=== PATIENT | female | born 1960 | race Caucasian/White ===

== ENCOUNTER 2018-01-27 20:03 | Observation (INO) | payer OTHER ==
[~2018-01-27] VITALS: Ht 162.6 cm; Wt 110.1 kg
[~2018-01-27 20:03] MED LIST: FERR325T51 PO; VITAMIN B12 PO; VITAMIN B6 PO; VITAMIN D PO
[2018-01-27 20:39] LABS: BASO % 0.4 %; BASO ABS # 0.02 K/uL (0-0.2); EOS % 2.1 %; HEMATOCRIT 37.7 % (37-47); HEMOGLOBIN 12.2 g/dL (12.0-16.0); LYMPH % 27.6 %; MEAN CELL VOLUME 84.9 fL (80-100); MEAN CORPUSCULAR HEMOGLOBIN 27.5 pg (25-34); MEAN CORPUSCULAR HGB CONC 32.4 g/dl (32-36); MEAN PLATELET VOLUME 10.1 fL (7.4-10.4); MONO % 10.4 %; MONO ABS # 0.49 K/uL (0.11-0.59); NEUT % 59.5 %; PLATELET COUNT 238 K/uL (130-400); RED CELL DISTRIBUTION WIDTH CV 14.2 % (11.5-14.5); RED CELL DISTRIBUTION WIDTH SD 44.2 fL (36.4-46.3); WHITE BLOOD COUNT 4.71 K/uL (4.8-10.8)
--- NOTE | 2018-01-27 20:39 | DIAGNOSTIC IMAGING REPORT ---
CHEST ONE VIEW PORTABLE HISTORY: Atypical CHEST PAIN COMPARISON: Chest 11/07/2015. FINDINGS: The lungs are clear. Cardiac silhouette is normal in size. No pleural effusions. No pneumothorax. Stable eventration of the right hemidiaphragm. There are low lung volumes, unchanged. IMPRESSION: No significant change compared to the prior study. No acute process. Electronically signed by: Pk Means M.D. 01/27/2018 8:38 PM Dictated Date/Time: 01/27/2018 8:37 PM
[2018-01-27 20:48] LABS: INR 0.9 (0.9-1.1); PTT PATIENT 25.9 SECONDS (21.0-31.0)
[2018-01-27 20:55] LABS: ALBUMIN 3.7 gm/dl (3.4-5.0); ALT/SGPT 24 U/L (12-78); AST/SGOT 26 U/L (15-37); BLOOD UREA NITROGEN 19 mg/dl (7-18); CALCIUM 8.7 mg/dl (8.5-10.1); CARBON DIOXIDE 25 mmol/L (21-32); CREATININE 1.02 mg/dl (0.60-1.20); GLUCOSE 92 mg/dl (70-99); LIPASE 201 U/L (73-393); SODIUM 139 mmol/L (136-145)
[2018-01-27 21:00] LABS: ALKALINE PHOSPHATASE 138 U/L (45-117); CKMB 1.8 ng/ml (0.5-3.6); TOTAL PROTEIN 7.6 gm/dl (6.4-8.2)
[2018-01-27] MEDS ORDERED: ASPIRIN 81 MG CHEW PO STA (21:06)
[2018-01-27] MEDS ORDERED: ACET-1256 PO (21:23)
[2018-01-27] MEDS ORDERED: ACETAMINOPHEN 325 MG TAB PO PRN (22:00)
[2018-01-27] MEDS ORDERED: NITROGLYCERIN 0.4 MG SL PER TAB CHARGE SL PRN (22:00)
[2018-01-27] MEDS ORDERED: METOPROLOL TARTRATE 1 MG/ML VIAL IV. PRN (22:00)
--- NOTE | 2018-01-27 22:03 | History and Physical ---
History & Physical Date & Time of Service: Jan 27, 2018 at 21:53 Chief Complaint: Possible Heart Attack- Dr Referred Primary Care Physician: No Doctor, Assigned History of Present Illness Source: patient Ms. Watts is a pleasant 57yo female with no significant past medical history. She reports feeling "odd" this afternoon with some mild sub-sternal chest pressure at approximately 12:00 this afternoon. The pain was nonradiating, nonexertional, nonpleuritic. She checked her blood pressure at the pharmacy and it was 171/82. She reports having normal blood pressures at baseline. She returned to work and experienced another episode of chest discomfort associated with a cold sweat. She then called her PCP and was seen at 18:30. An EKG was performed which was concerning for an old infarct therefore she was sent to the ER. She is presently without pain and feeling well. She does endorse some episodic chest discomfort and becoming "winded" with heavy exercise. She is a nonsmoker, no history of HTN, HLP or DM. She has a family history of CAD. ER Course: ASA 324mg Past Medical/Surgical History Medical Problems: (1) Chest pain Surgical Problems: (1) H/O gastric bypass Family History Cancer Diabetes mellitus FH: myocardial infarction Heart disease Hypertension Social History Smoking Status: Never Smoker Smokeless Tobacco Use: No Alcohol Use: none Drug Use: none Marital Status: single Occupational Status: employed Allergies Coded Allergies: Penicillins (Verified Allergy, Unknown, pt unsure of rxn occured as a child, 02/14/16) Hydrocodone (Verified Adverse Reaction, Unknown, pt states she "zoned", 07/22) Home Medications Scheduled PRN Acetaminophen (Tylenol), 500 MG PO UD PRN for Pain or Fever Review of Systems Constitutional: No fever, No chills, No sweats, No weight loss, No weakness Eyes: No worsening of vision, No redness, No discharge, No diplopia ENT: No hearing loss, No unusual epistaxis, No sore throat, No trouble swallowing Respiratory: + dyspnea on exertion, No cough, No sputum, No wheezing, No shortness of breath Cardiovascular: + chest pain, + palpitations, No orthopnea, No edema Abdomen: No pain, No nausea, No vomiting, No diarrhea, No constipation Musculoskeletal: No swelling Genitourinary - Female: No dysuria, No urinary frequency, No urinary urgency, No hematuria Neurologic: No weakness, No numbness/tingling Endocrine: No fatigue Hematologic / Lymphatic: No abnormal bleeding/bruising Integumentary: No rash Physical Exam Vital Signs Date Time Temp Pulse Resp B/P (MAP) Pulse Ox O2 Delivery O2 Flow Rate FiO2 01/27/18 21:34 79 18 159/72 98 Room Air 01/27/18 20:30 66 01/27/18 20:20 96 Room Air 01/27/18 20:20 98 Room Air 01/27/18 20:19 98 Room Air 01/27/18 20:09 36.6 69 18 204/88 99 Room Air General Appearance: WD/WN, no apparent distress Head: normocephalic, atraumatic Eyes: normal inspection, PERRL, EOMI, sclerae normal ENT: normal ENT inspection, hearing grossly normal, pharynx normal Neck: supple, no adenopathy, thyroid normal, no JVD, trachea midline Respiratory/Chest: chest non-tender, lungs clear, normal breath sounds, no respiratory distress, no accessory muscle use Cardiovascular: regular rate, rhythm, no edema, no gallop, no JVD, no murmur, normal peripheral pulses Abdomen/GI: normal bowel sounds, non tender, soft, no organomegaly Back: normal inspection, no CVA tenderness Extremities/Musculoskelatal: normal inspection Skin: normal color, warm/dry, no rash Diagnostics Laboratory Results Results Past 24 Hours Test 01/27/18 20:22 Range/Units White Blood Count 4.71 4.8-10.8 K/uL Red Blood Count 4.44 4.2-5.4 M/uL Hemoglobin 12.2 12.0-16.0 g/dL Hematocrit 37.7 37-47 % Mean Corpuscular Volume 84.9 80-100 fL Mean Corpuscular Hemoglobin 27.5 25-34 pg Mean Corpuscular Hemoglobin Concent 32.4 32-36 g/dl Platelet Count 238 130-400 K/uL Mean Platelet Volume 10.1 7.4-10.4 fL Neutrophils (%) (Auto) 59.5 % Lymphocytes (%) (Auto) 27.6 % Monocytes (%) (Auto) 10.4 % Eosinophils (%) (Auto) 2.1 % Basophils (%) (Auto) 0.4 % Neutrophils # (Auto) 2.80 1.4-6.5 K/uL Lymphocytes # (Auto) 1.30 1.2-3.4 K/uL Monocytes # (Auto) 0.49 0.11-0.59 K/uL Eosinophils # (Auto) 0.10 0-0.5 K/uL Basophils # (Auto) 0.02 0-0.2 K/uL RDW Standard Deviation 44.2 36.4-46.3 fL RDW Coefficient of Variation 14.2 11.5-14.5 % Immature Granulocyte % (Auto) 0.0 % Immature Granulocyte # (Auto) 0.00 0.00-0.02 K/uL Prothrombin Time 9.7 9.0-12.0 SECONDS Prothromb Time International Ratio 0.9 0.9-1.1 Activated Partial Thromboplast Time 25.9 21.0-31.0 SECONDS Partial Thromboplastin Ratio 1.0 Sodium Level 139 136-145 mmol/L Potassium Level 4.0 3.5-5.1 mmol/L Chloride Level 107 98-107 mmol/L Carbon Dioxide Level 25 21-32 mmol/L Anion Gap 7.0 3-11 mmol/L Blood Urea Nitrogen 19 7-18 mg/dl Creatinine 1.02 0.60-1.20 mg/dl Est Creatinine Clear Calc Drug Dose 73.3 ml/min Estimated GFR () 69.7 Estimated GFR (Non- 60.2 BUN/Creatinine Ratio 18.7 10-20 Random Glucose 92 70-99 mg/dl Calcium Level 8.7 8.5-10.1 mg/dl Total Bilirubin 0.4 0.2-1 mg/dl Direct Bilirubin < 0.1 0-0.2 mg/dl Aspartate Amino Transf (AST/SGOT) 26 15-37 U/L Alanine Aminotransferase (ALT/SGPT) 24 12-78 U/L Alkaline Phosphatase 138 45-117 U/L Total Creatine Kinase 173 26-192 U/L Creatine Kinase MB 1.8 0.5-3.6 ng/ml Creatine Kinase MB Ratio 1.0 0-3.0 Troponin I < 0.015 0-0.045 ng/ml Total Protein 7.6 6.4-8.2 gm/dl Albumin 3.7 3.4-5.0 gm/dl Lipase 201 73-393 U/L Diagnostic Radiology CHEST ONE VIEW PORTABLE HISTORY: Atypical CHEST PAIN COMPARISON: Chest 11/07/2015. FINDINGS: The lungs are clear. Cardiac silhouette is normal in size. No pleural effusions. No pneumothorax. Stable eventration of the right hemidiaphragm. There are low lung volumes, unchanged. IMPRESSION: No significant change compared to the prior study. No acute process. Electronically signed by: Pk Means M.D. 01/27/2018 8:38 PM EKG The study demonstrates normal sinus rhythm at 70bpm, normal axis and intervals, TWI in V1, poor R wave progression, ?anterior q waves Impression Assessment and Plan 57yo female presenting with episodic sub-sternal chest discomfort, EKG changes from prior 1. Chest pain - patient presently CP free -check lipids -check AIC -trend cardiac enzymes x 3 sets -observation to telemetry -stress echocardiogram in the AM 2. Hypertension - patient with BP of 204/88 on arrival, 169/77 on repeat. She admits to increased stress and anxiety in her life -Continue to monitor. If patient demonstrates consistently elevated blood pressures will initiate anti-hypertensive therapy -Hydralazine PRN 3. F/E/N - Heplock. Monitor electrolytes and replete as needed. NPO after midnight 4. Ppx - Lovenox 5. Code - Full 6. Dispo - observation to telemetry unit Resuscitation Status Full VTE Prophylaxis Will order VTE Prophylaxis: Yes
[2018-01-27] MEDS ORDERED: HydrALAZINE HCL 20 MG/ML VIAL IV. PRN (22:15)
[2018-01-27 22:50] VITALS: BP 141/67; PULSE 58; TEMP 36.6; O2SAT 99; Ht 162.6 cm; Wt 110.1 kg
--- NOTE | 2018-01-27 22:55 | EMERGENCY ROOM VISIT NOTE ---
History Report prepared by Wero: Maria Elena Zheng Under the Supervision of: Dr. Mukund Jamil M.D. First contact with patient: 20:17 Chief Complaint: CARDIAC ASSESSMENT Stated Complaint: POSSIBLE HEART ATTACK- DR REFERRED Nursing Triage Summary: Pt states that she was at work today and around 1100 she said she started to feel "weird." Described it as a chest heaviness like a hand was pressing on her sternum. Told her who asked her to check her BP. Pts BP was elevated in 170s. Pt denies hx of HTN. Pt states she had a slight headache. Lasted all day, went to PCP at 630pm and told to come here for EKG changes. Pt denies chest pressure at this time, denies symptoms History of Present Illness The patient is a 57 year old female who presents to the Emergency Room with complaints of cardiac assessment today. The patient states that she was having chest pain today around [id number] at work. She reports that the pain came on suddenly and states that she was just standing at a register when it happened. The patient states that she felt pressure in her chest as if someone was pressing their hand on her chest. She denies having any symptoms the last couple of days. She states that after she had the pain she broke out into a cold sweat and was also shaky. The patient reports that she took her blood pressure at work and it was 171/82, and states that she is normally normotensive. The patient does report that she has had a lot of stress over the last year and a half, but denies having a stress test done before. She states that rest alleviated her pain. The patient reports that she saw [facility] around 1900 tonight and had some ECG's done which were abnormal and then she was referred to the Emergency Department. The patient reports a family history of cardiac problems and hypertension, but denies any personal history. She denies a history of smoking and denies recent travel. Pt denies LOC, headache, fevers, visual changes, neck pain, breathing difficulties , nausea, vomiting, abdominal pain, back pain, melena, hematochezia, urinary symptoms, numbness, weakness, lymphadenopathy, rash, or other complaints. Source of History: patient Onset: today Position: chest Quality: other (cardiac assessment ) Associated Symptoms: + diaphoresis, + chest pain, No vomiting Note: additional symptom: shakiness Review of Systems See HPI for pertinent positives and negatives. A total of ten systems were reviewed and were otherwise negative. Past Medical & Surgical Medical Problems: (1) Chest pain Surgical Problems: (1) H/O gastric bypass Family History Cancer Diabetes mellitus FH: myocardial infarction Heart disease Hypertension Social History Smoking Status: Never Smoker Smokeless Tobacco Use: No Alcohol Use: none Marital Status: in relationship Housing Status: lives with significant other Occupation Status: employed Current/Historical Medications Scheduled PRN Acetaminophen (Tylenol), 500 MG PO UD PRN for Pain or Fever Allergies Coded Allergies: Penicillins (Verified Allergy, Unknown, pt unsure of rxn occured as a child, 02/14/16) Hydrocodone (Verified Adverse Reaction, Unknown, pt states she "zoned", 07/22) Physical Exam Vital Signs Date Time Temp Pulse Resp B/P (MAP) Pulse Ox O2 Delivery O2 Flow Rate FiO2 01/27/18 21:34 79 18 159/72 98 Room Air 01/27/18 20:30 66 01/27/18 20:20 96 Room Air 01/27/18 20:20 98 Room Air 01/27/18 20:19 98 Room Air 01/27/18 20:09 36.6 69 18 204/88 99 Room Air Physical Exam GENERAL: Awake, alert, well-appearing, in no distress HENT: Normocephalic, atraumatic. Oropharynx unremarkable. EYES: Normal conjunctiva. Sclera non-icteric. NECK: Supple. No nuchal rigidity. FROM. No masses. RESPIRATORY: Clear to auscultation. No wheezes. No rales. Normal respiratory effort. CARDIAC: Normal rate. Normal rhythm. No murmurs. No rubs. Extremities warm and well perfused. Pulses equal. No JVD. GI: Soft, non-distended. No tenderness to palpation. No rebound or guarding. No masses. RECTAL: Deferred. MUSCULOSKELETAL: Atraumatic. Chest examination reveals no tenderness. The back is symmetrical on inspection without obvious abnormality. There is no CVA tenderness to palpation. No joint edema. LOWER EXTREMITIES: Calves are equal size bilaterally and non-tender. No edema. No discoloration. NEURO: Normal sensorium. No sensory or motor deficits noted. SKIN: No rash or jaundice noted. Medical Decision & Procedures ER Provider Diagnostic Interpretation: Radiology results as stated below per my review and radiologist interpretation: CHEST ONE VIEW PORTABLE HISTORY: Atypical CHEST PAIN COMPARISON: Chest 11/07/2015. FINDINGS: The lungs are clear. Cardiac silhouette is normal in size. No pleural effusions. No pneumothorax. Stable eventration of the right hemidiaphragm. There are low lung volumes, unchanged. IMPRESSION: No significant change compared to the prior study. No acute process. Electronically signed by: Pk Means M.D. 01/27/2018 8:38 PM Dictated Date/Time: 01/27/2018 8:37 PM Laboratory Results 01/27/18 20:22 Red Blood Count 4.44, Mean Corpuscular Volume 84.9, Mean Corpuscular Hemoglobin 27.5, Mean Corpuscular Hemoglobin Concent 32.4, Mean Platelet Volume 10.1, Neutrophils (%) (Auto) 59.5, Lymphocytes (%) (Auto) 27.6, Monocytes (%) (Auto) 10.4, Eosinophils (%) (Auto) 2.1, Basophils (%) (Auto) 0.4, Neutrophils # (Auto ) 2.80, Lymphocytes # (Auto) 1.30, Monocytes # (Auto) 0.49, Eosinophils # (Auto ) 0.10, Basophils # (Auto) 0.02 01/27/18 20:22 Test 01/27/18 20:22 White Blood Count 4.71 K/uL (4.8-10.8) Red Blood Count 4.44 M/uL (4.2-5.4) Hemoglobin 12.2 g/dL (12.0-16.0) Hematocrit 37.7 % (37-47) Mean Corpuscular Volume 84.9 fL (80-100) Mean Corpuscular Hemoglobin 27.5 pg (25-34) Mean Corpuscular Hemoglobin Concent 32.4 g/dl (32-36) Platelet Count 238 K/uL (130-400) Mean Platelet Volume 10.1 fL (7.4-10.4) Neutrophils (%) (Auto) 59.5 % Lymphocytes (%) (Auto) 27.6 % Monocytes (%) (Auto) 10.4 % Eosinophils (%) (Auto) 2.1 % Basophils (%) (Auto) 0.4 % Neutrophils # (Auto) 2.80 K/uL (1.4-6.5) Lymphocytes # (Auto) 1.30 K/uL (1.2-3.4) Monocytes # (Auto) 0.49 K/uL (0.11-0.59) Eosinophils # (Auto) 0.10 K/uL (0-0.5) Basophils # (Auto) 0.02 K/uL (0-0.2) RDW Standard Deviation 44.2 fL (36.4-46.3) RDW Coefficient of Variation 14.2 % (11.5-14.5) Immature Granulocyte % (Auto) 0.0 % Immature Granulocyte # (Auto) 0.00 K/uL (0.00-0.02) Prothrombin Time 9.7 SECONDS (9.0-12.0) Prothromb Time International Ratio 0.9 (0.9-1.1) Activated Partial Thromboplast Time 25.9 SECONDS (21.0-31.0) Partial Thromboplastin Ratio 1.0 Anion Gap 7.0 mmol/L (3-11) Est Creatinine Clear Calc Drug Dose 73.3 ml/min Estimated GFR () 69.7 Estimated GFR (Non- 60.2 BUN/Creatinine Ratio 18.7 (10-20) Calcium Level 8.7 mg/dl (8.5-10.1) Total Bilirubin 0.4 mg/dl (0.2-1) Direct Bilirubin < 0.1 mg/dl (0-0.2) Aspartate Amino Transf (AST/SGOT) 26 U/L (15-37) Alanine Aminotransferase (ALT/SGPT) 24 U/L (12-78) Alkaline Phosphatase 138 U/L (45-117) Total Creatine Kinase 173 U/L (26-192) Creatine Kinase MB 1.8 ng/ml (0.5-3.6) Creatine Kinase MB Ratio 1.0 (0-3.0) Troponin I < 0.015 ng/ml (0-0.045) Total Protein 7.6 gm/dl (6.4-8.2) Albumin 3.7 gm/dl (3.4-5.0) Lipase 201 U/L (73-393) Laboratory results reviewed by me Medications Administered Medications (Trade) Dose Ordered Sig/Isael Route Start Time Stop Time Status Last Admin Dose Admin Aspirin (Aspirin Chew) 324 mg NOW STAT PO 01/27/18 21:06 01/27/18 21:07 DC 01/27/18 21:33 324 MG ECG Per My Interpretation Indication: chest pain Rate (beats per minute): 70 Rhythm: normal sinus Findings: Q waves (Anterior, septal), no ectopy Comparison ECG Date: changes are new compared to November 2015 ED Course 2055: The patient was evaluated in room B2. A complete history and physical exam was performed. 2105: Ordered Aspirin 324 mg PO. 2107: I discussed the test results and treatment plan with her. I spoke to Dr. Wallace of the [facility]. The patient will be evaluated for further management. Medical Decision Prior records/ancillary studies reviewed. Triage Nursing notes reviewed and agree them. Additional history obtained from the family. The patient's history was concerning for chest pain. Differential diagnosis: Etiologies such as cardiac ischemia, aortic dissection, pulmonary embolism, pneumonia, pneumothorax, musculoskeletal, infections, pericarditis, myocarditis , esophageal rupture, gastrointestinal, as well as others were entertained. Physical examination: As above. ER treatment provided: Oral aspirin Diagnostic interpretation by me: The electrocardiogram revealed new Q waves. Changes in lead III also noted. The labs revealed an unremarkable CBC and chemistry panel. Cardiac markers negative. Imaging studies: Chest x-ray as above The patient had substernal chest pain that was associated with diaphoresis and was resolved with rest. She has a strong family history. Further management in the hospital was felt to be appropriate. Consultation: A consultation was placed with the hospitalist. The case was discussed and diagnostics were reviewed. The patient was evaluated in the ER for further treatment. Medication Reconcilliation Current Medication List: was personally reviewed by me Blood Pressure Screening Patient's blood pressure: Elevated blood pressure Blood pressure disposition: Referred to PCP will be monitored by the hospitalist Consults Time Called: 2107 Consulting Physician: Dr. Wallace- [facility] Returned Call: 2107 Discussed the patient's case. The patient will be evaluated for further treatment and disposition. Impression Primary Impression: Substernal chest pain Scribe Attestation The scribe's documentation has been prepared under my direction and personally reviewed by me in its entirety. I confirm that the note above accurately reflects all work, treatment, procedures, and medical decision making performed by me. Departure Information Dispostion Being Evaluated By Hospitalist Referrals Mason Gamino D.O. (PCP) Patient Instructions [facility]
[2018-01-27 23:11] VITALS: BP 145/77; PULSE 68; TEMP 36.6; O2SAT 99
[2018-01-27] MEDS ORDERED: IV FLUIDS COMPLETED PRN (23:15)
[2018-01-27 23:59] VITALS: O2SAT 99
[2018-01-28] VITALS (8 sets, daily range): BP systolic 103–149; BP diastolic 68–82; PULSE 53–71; TEMP 36.5–37.1; O2SAT 94–100
[2018-01-28 03:56] LABS: HEMATOCRIT 33.6 % (37-47); MEAN CELL VOLUME 84.2 fL (80-100); MEAN CORPUSCULAR HEMOGLOBIN 27.6 pg (25-34); MEAN CORPUSCULAR HGB CONC 32.7 g/dl (32-36); MEAN PLATELET VOLUME 10.1 fL (7.4-10.4); PLATELET COUNT 209 K/uL (130-400); RED CELL DISTRIBUTION WIDTH CV 14.3 % (11.5-14.5); RED CELL DISTRIBUTION WIDTH SD 44.2 fL (36.4-46.3); WHITE BLOOD COUNT 3.66 K/uL (4.8-10.8)
[2018-01-28 04:22] LABS: BLOOD UREA NITROGEN 17 mg/dl (7-18); CALCIUM 8.5 mg/dl (8.5-10.1); CARBON DIOXIDE 27 mmol/L (21-32); CREATININE 0.82 mg/dl (0.60-1.20); GLUCOSE 83 mg/dl (70-99); POTASSIUM 3.9 mmol/L (3.5-5.1); SODIUM 142 mmol/L (136-145)
[2018-01-28 04:27] LABS: CHOLESTEROL 142 mg/dl (0-200); LDL CHOLESTEROL CALCULATED 57 mg/dl
[2018-01-28] MEDS: ENOXAPARIN 40 MG/0.4 ML SYR SC SCH (05:37)
[2018-01-28 06:20] LABS: HEMOGLOBIN A1C 5.6 % (4.5-5.6)
[2018-01-28] MEDS: ASPIRIN 81 MG ECTAB PO SCH (07:43)
[2018-01-28] MEDS ORDERED: PERFLUTREN LIPID MICROSPHERE (DEFINITY) IV ONE (10:42)
--- NOTE | 2018-01-28 12:02 | EXERCISE STRESS ECHO ---
*NOTICE TO RECEIVING LIBERTARIAN AGENCY This information is strictly Confidential and protected under [place] law. [place] law prohibits you from making any further disclosure of this information unless further disclosure is expressly permitted by the written consent of the person to whom it pertains or is authorized by law. A general authorization for the release of medical or other information is not sufficient for this purpose. Hospital accepts no responsibility if the information is made available to any other person, INCLUDING THE PATIENT. Interpretation Summary * Name: FRITZ RICE Study Date: 01/28/2018 09:35 AM BP: 132/72 mmHg * Patient Location: .2T\S\E215\S\1 HR: 50 * : 1960 (M/d/yy) Gender: Female Height: 64 in * Age: 57 yrs Ethnicity: CA Weight: 250 lb * Ordering Physician: Fallon Wallace * Referring Physician: Self, Referred * Performed By: Fallon Valencia RDCS * * Reason For Study: CHEST PAIN * BSA: 2.2 m2 * -- Conclusions -- * 1. Indeterminate exercise stress echo for ischemia at 93 % MPHR. Gross LV augmentation but questionable base to mid inferior stress-induced hypokinesis. * 2. Negative stress ECG for ischemia. * 3. Below average functional capacity. Exercised 3:00 min, acheiving 4.6 METS. * 4. No exercise induced chest pain. Normal hemodynamic response to exercise. * 5. Normal resting LV size and function. EF 60-65%. RV not well visualized but function appears grossly normal. Aortic valve sclerosis without other significant valvular pathology. * 6. Compared with prior study on 04/12/2014: Resting function unchanged. Procedure Details * ECHOEX, CPT #43632 * A contrast injection of Definity was performed to improve assessment of LV function. * Contrast was injected into an intravenous site in the right arm. * One vial of Definity ultrasound contrast was diluted in normal saline to a total volume of 10 ml. A total of '2' ml of solution was administered during imaging. * Lot # [id number] of Definity utilized for procedure. * Expiration date JAN 23. * The attending nurse who injected the contrast agent was KENJI PORTER RN. Left Ventricle * The left ventricle is grossly normal size. * There is borderline concentric left ventricular hypertrophy. * Ejection Fraction = 60-65%. * Limited evaluation of regional wall motion despite use of definity contrast. LV function appears to grossly improved with stress. Inferior wall from base to mid segment appears borderline hypokinetic. Right Ventricle * The right ventricle is not well visualized. * The right ventricle is grossly normal size. Atria * Borderline left atrial enlargement. * Borderline right atrial enlargement. * No ASD detected; PFO is not assessed. Mitral Valve * The mitral valve is grossly normal. * There is no mitral valve stenosis. * Significant mitral regurgitation is absent. Aortic Valve * Aortic valve sclerosis mild, without significant aortic valvular stenosis. * The aortic valve is trileaflet. * No hemodynamically significant valvular aortic stenosis. Pulmonic Valve * The pulmonary valve is inadequately visualized, but the Doppler data is adequate for interpretation. * Trace pulmonic valvular regurgitation. Great Vessels * The aortic root and proximal ascending aorta are normal sized. Stress Parameters * Normal baseline electrocardiogram. * Stress ECG: No ST changes. No arrhythmias. * EKG difficult to interpret at peak stress. * Rest heart rate was '50' BPM. * Rest blood pressure was '132/72' * Maximum heart rate achieved was 151 bpm. * Maximum heart rate was 93 % of maximum age-predicted heart rate. * Maximum blood pressure was '197/72' * Total exercise time was '3:00' * Maximum exercise MET level achieved was '4.60' METS * Maximum treadmill speed was '1.70' miles per hour. * Maximum treadmill elevation was '10.00'% grade. * Exercise was terminated due to 'ACHIEVING TARGET HR' Left Ventricular Findings with Stress * The study was technically adequate. MMode 2D Measurements and Calculations IVSd 0.94 cm IVSs 1.4 cm LVIDd 4.4 cm LVIDs 3.0 cm LVPWd 1.2 cm LVPWs 1.7 cm IVS/LVPW 0.79 FS 32.9 % EDV(Teich) 88.0 ml ESV(Teich) 33.8 ml EF(Teich) 61.6 % EDV(cubed) 85.6 ml ESV(cubed) 25.9 ml EF(cubed) 69.7 % % IVS thick 50.5 % % LVPW thick 38.7 % LV mass(C)d 161.8 grams LV mass(C)dI 75.2 grams/m\S\2 LV mass(C)s 160.9 grams LV mass(C)sI 74.8 grams/m\S\2 SV(Teich) 54.2 ml SI(Teich) 25.2 ml/m\S\2 SV(cubed) 59.7 ml SI(cubed) 27.8 ml/m\S\2 Ao root diam 3.1 cm Ao root area 7.4 cm\S\2 LA dimension 4.0 cm LA/Ao 1.3 Doppler Measurements and Calculations MV E max ruth 91.9 cm/sec MV A max ruth 80.2 cm/sec MV E/A 1.1 MV dec time 0.26 sec Ao V2 max 160.8 cm/sec Ao max PG 10.3 mmHg Ao max PG (full) 5.5 mmHg LV V1 max PG 4.8 mmHg LV V1 max 110.0 cm/sec
--- NOTE | 2018-01-28 15:17 | Progress Note ---
Subjective Date of Service: Jan 28, 2018. Subjective Pt evaluation today including: conversation w/ patient, physical exam, chart review, lab review, review of studies, conversation w/ diet consultant, review of inpatient medication list Pain: Denies PO Intake: Good Voiding: no voiding problems Luzma has not had recurrence of chest pain since her admission. When recounting the events of yesterday, she describes a sudden onset of substernal chest heaviness and a profound sense of fatigue. After the pain resolved, she had an episode of "cold sweats." She does not recall a prior episode of similar. She will occ feel a twinge in her chest, non-specific, and occ a "skipped beat." Problem List Medical Problems: (1) Substernal chest pain Status: Acute Review of Systems Constitutional: + sweats, No fever, No chills, No weight loss, No weakness, No fatigue Eyes: No problem reported ENT: No problem reported Respiratory: No shortness of breath Cardiac: + chest pain Breast: No problem reported Abdomen: No pain, No nausea Female : No dysuria, No urinary frequency All Other Systems: Reviewed and Negative Medications Current Inpatient Medications Medications (Trade) Dose Ordered Sig/Isael Route Start Time Stop Time Status Last Admin Dose Admin Enoxaparin Sodium (Lovenox Inj) 40 mg Q24H SC 01/28/18 06:00 02/27/18 05:59 01/28/18 05:37 40 MG Acetaminophen (Tylenol Tab) 650 mg Q4H PRN PO 01/27/18 22:00 02/26/18 21:59 Nitroglycerin (Nitrostat Tab) 0.4 mg UD PRN SL 01/27/18 22:00 02/26/18 21:59 Aspirin (Ecotrin Tab) 81 mg QAM PO 01/28/18 09:00 02/27/18 08:59 01/28/18 07:43 81 MG Hydralazine HCl (HydrALAZINE INJ) 5 mg Q4 PRN IV. 01/27/18 22:15 02/26/18 22:14 Miscellaneous (Iv Fluids Completed) 1 ea PRN PRN N/A 01/27/18 23:15 01/27/19 23:14 Objective Vital Signs Date Time Temp Pulse Resp B/P (MAP) Pulse Ox O2 Delivery O2 Flow Rate FiO2 01/28/18 12:11 37.1 71 19 110/68 (82) 97 Room Air 01/28/18 12:00 Room Air 01/28/18 08:00 Room Air 01/28/18 07:48 36.6 57 18 149/79 (102) 96 Room Air 01/28/18 04:04 36.7 53 16 123/73 (90) 96 Room Air 01/28/18 04:00 99 Room Air 01/27/18 23:59 99 Room Air 01/27/18 23:11 36.6 68 18 145/77 (99) 99 Room Air 01/27/18 22:50 36.6 58 20 141/67 99 Room Air 01/27/18 22:03 86 18 159/88 98 01/27/18 21:34 79 18 159/72 98 Room Air 01/27/18 20:30 66 01/27/18 20:20 96 Room Air 01/27/18 20:20 98 Room Air 01/27/18 20:19 98 Room Air 01/27/18 20:09 36.6 69 18 204/88 99 Room Air Physical Exam General Appearance: WD/WN, no apparent distress Eyes: normal inspection, PERRL, EOMI ENT: normal ENT inspection, hearing grossly normal Neck: supple, no adenopathy Respiratory/Chest: chest non-tender, lungs clear, normal breath sounds, no respiratory distress Cardiovascular: regular rate, rhythm, no edema, no gallop Abdomen: normal bowel sounds, non tender, soft, no organomegaly, no pulsatile mass Extremities: normal range of motion, non-tender Neurologic/Psychiatric: no motor/sensory deficits, alert, normal mood/affect, oriented x 3 Laboratory Results Last 24 Hours Test 01/27/18 20:22 01/28/18 03:43 01/28/18 09:33 White Blood Count 4.71 K/uL 3.66 K/uL Red Blood Count 4.44 M/uL 3.99 M/uL Hemoglobin 12.2 g/dL 11.0 g/dL Hematocrit 37.7 % 33.6 % Mean Corpuscular Volume 84.9 fL 84.2 fL Mean Corpuscular Hemoglobin 27.5 pg 27.6 pg Mean Corpuscular Hemoglobin Concent 32.4 g/dl 32.7 g/dl Platelet Count 238 K/uL 209 K/uL Mean Platelet Volume 10.1 fL 10.1 fL Neutrophils (%) (Auto) 59.5 % Lymphocytes (%) (Auto) 27.6 % Monocytes (%) (Auto) 10.4 % Eosinophils (%) (Auto) 2.1 % Basophils (%) (Auto) 0.4 % Neutrophils # (Auto) 2.80 K/uL Lymphocytes # (Auto) 1.30 K/uL Monocytes # (Auto) 0.49 K/uL Eosinophils # (Auto) 0.10 K/uL Basophils # (Auto) 0.02 K/uL RDW Standard Deviation 44.2 fL 44.2 fL RDW Coefficient of Variation 14.2 % 14.3 % Immature Granulocyte % (Auto) 0.0 % Immature Granulocyte # (Auto) 0.00 K/uL Prothrombin Time 9.7 SECONDS Prothromb Time International Ratio 0.9 Activated Partial Thromboplast Time 25.9 SECONDS Partial Thromboplastin Ratio 1.0 Sodium Level 139 mmol/L 142 mmol/L Potassium Level 4.0 mmol/L 3.9 mmol/L Chloride Level 107 mmol/L 111 mmol/L Carbon Dioxide Level 25 mmol/L 27 mmol/L Anion Gap 7.0 mmol/L 4.0 mmol/L Blood Urea Nitrogen 19 mg/dl 17 mg/dl Creatinine 1.02 mg/dl 0.82 mg/dl Est Creatinine Clear Calc Drug Dose 73.3 ml/min 90.8 ml/min Estimated GFR () 69.7 90.8 Estimated GFR (Non- 60.2 78.3 BUN/Creatinine Ratio 18.7 20.9 Random Glucose 92 mg/dl 83 mg/dl Estimated Average Glucose 114 mg/dl Hemoglobin A1c 5.6 % Calcium Level 8.7 mg/dl 8.5 mg/dl Phosphorus Level 4.0 mg/dl Magnesium Level 2.1 mg/dl Total Bilirubin 0.4 mg/dl Direct Bilirubin < 0.1 mg/dl Aspartate Amino Transf (AST/SGOT) 26 U/L Alanine Aminotransferase (ALT/SGPT) 24 U/L Alkaline Phosphatase 138 U/L Total Creatine Kinase 173 U/L Creatine Kinase MB 1.8 ng/ml Creatine Kinase MB Ratio 1.0 Troponin I < 0.015 ng/ml < 0.015 ng/ml < 0.015 ng/ml Total Protein 7.6 gm/dl Albumin 3.7 gm/dl Lipase 201 U/L Triglycerides Level 47 mg/dl Cholesterol Level 142 mg/dl HDL Cholesterol 76 mg/dl LDL Cholesterol, Calculated 57 mg/dl VLDL Cholesterol, Calculated 9 mg/dl Cholesterol/HDL Ratio 1.9 Hepatitis C Antibody Screen NEG Assessment and Plan Chest Pain Negative enzymes. Her lipid profile is excellent, her A1c is normal. Her stress echocardiogram is equivocal. Given lack of alternative diagnosis (no indicators of GERD or musculoskeletal etiology), and equivocal stress images, will consult cardiology. Hypertension Elevated at presentation but looks good this morning Continue to monitor Acutely elevated blood pressure could have accounted for her symptoms.
[2018-01-29] VITALS (12 sets, daily range): BP systolic 103–156; BP diastolic 61–85; PULSE 48–83; TEMP 36.6–36.8; O2SAT 96–100
[2018-01-29] MEDS: ENOXAPARIN 40 MG/0.4 ML SYR SC SCH (06:18)
[2018-01-29 06:53] LABS: HEMATOCRIT 35.6 % (37-47); HEMOGLOBIN 11.5 g/dL (12.0-16.0); MEAN CORPUSCULAR HEMOGLOBIN 27.4 pg (25-34); MEAN CORPUSCULAR HGB CONC 32.3 g/dl (32-36); PLATELET COUNT 189 K/uL (130-400); RED CELL DISTRIBUTION WIDTH CV 14.4 % (11.5-14.5); RED CELL DISTRIBUTION WIDTH SD 44.6 fL (36.4-46.3); WHITE BLOOD COUNT 3.39 K/uL (4.8-10.8)
[2018-01-29 07:05] LABS: PTT PATIENT 24.9 SECONDS (21.0-31.0)
[2018-01-29 07:36] LABS: BLOOD UREA NITROGEN 18 mg/dl (7-18); CALCIUM 8.8 mg/dl (8.5-10.1); CARBON DIOXIDE 28 mmol/L (21-32); CREATININE 0.85 mg/dl (0.60-1.20); GLUCOSE 85 mg/dl (70-99); POTASSIUM 4.5 mmol/L (3.5-5.1); SODIUM 143 mmol/L (136-145)
[2018-01-29] MEDS: ASPIRIN 81 MG ECTAB PO SCH (09:00)
[2018-01-29] MEDS ORDERED: MIDAZOLAM HCL 1 MG/ML 2ML VIAL ONE (11:20)
[2018-01-29] MEDS ORDERED: LIDOCAINE HCL 1% 20 ML VIAL ONE (11:21)
[2018-01-29] MEDS ORDERED: FENTANYL CITRATE INJ 50 MCG/1 ML 2 ML VIAL ONE (11:21)
[2018-01-29] MEDS ORDERED: HEPARIN SOD (PORCINE) 1000 UNIT/ML 10 ML VIAL ONE (11:21)
[2018-01-29] MEDS ORDERED: NiCARDipine HCL INJ 2.5 MG/ML 10 ML AMP ONE (11:21)
[2018-01-29] MEDS ORDERED: NITROGLYCERIN/D5W 100MCG/ML 20ML SYR ONE (11:22)
--- NOTE | 2018-01-29 11:43 | Pre Sedation Assessment ---
Pre Sedation Assessment General Date of Sedation: Jan 29, 2018. Vital Signs Past 12 Hours Date Time Temp Pulse Resp B/P (MAP) Pulse Ox O2 Delivery O2 Flow Rate FiO2 01/29/18 11:29 36.8 83 18 156/83 (107) 99 Room Air 01/29/18 08:00 Room Air 01/29/18 07:40 36.8 57 16 103/63 (76) 97 Room Air 01/29/18 04:00 97 Room Air 01/29/18 03:41 36.8 59 17 112/75 (87) 97 Room Air 01/29/18 00:00 100 Room Air Review Cardiovascular: regular rate, rhythm, no edema Pre-Sedation Airway Assessment Smoking Status: Never Smoker Hx of Sleep Apnea: No Short Thick Neck: No Thyro-mental Distance: > 3 Finger Breadths Oral Cavity: WNL Mallampati Classification: Class II ASA Classification: Class III NPO Status Date of Last Intake of Fluids: Jan 28, 2018 Time of Last Intake of Fluids: 2200 Date of Last Intake of Solids: Jan 28, 2018 Time of Last Intake of Solids: 1999 Procedure Planning Contraindications for Sedation: None Current Medications Reviewed: Yes Notes The planned sedation has been discussed with the patient. Informed Consent was obtained. I have identified the patient, determined the appropriateness of sedation and have assessed the patient immediately prior to the procedure. All medicine(s) and interventions are by my order.
--- NOTE | 2018-01-29 11:44 | Post Sedation Assessment ---
Post Sedation Assessment General Date of Sedation Jan 29, 2018. Vital Signs: Vital Signs Past 12 Hours Date Time Temp Pulse Resp B/P (MAP) Pulse Ox O2 Delivery O2 Flow Rate FiO2 01/29/18 11:29 36.8 83 18 156/83 (107) 99 Room Air 01/29/18 08:00 Room Air 01/29/18 07:40 36.8 57 16 103/63 (76) 97 Room Air 01/29/18 04:00 97 Room Air 01/29/18 03:41 36.8 59 17 112/75 (87) 97 Room Air 01/29/18 00:00 100 Room Air Post Procedure Recovery Score Activity: (2) Moves 4 extremities * Respiration: (2) Deep breath/cough Circulation: (2) +/-20% PreAnes Value Consciousness: (2) Fully Awake Oxygen Saturation: (1) O2 needed for >90% Discharge Sedation Level of Care: Fast Track Phase II Post Sedation Plan On clinical assessment, the patient appears to have tolerated the sedation without complications. Patient is recovering as anticipated. Patient will continue to be monitored by nursing and may be discharged when sedation discharge criteria are met per below protocol. Upon Completions of procedure and additional 15 minutes continue every 5 minute vital signs and the P.A.R. score; then discharge to a Phase I or Fast Track to Phase II per the following guidelines: * Discharge Patient to appropriate Phase II area if PAR is 8 or greater or return to pre- procedure baseline. The post - procedure orders will be as directed. * If PAR score is less than 8 or not return to pre-procedure baseline then patient will follow Phase I monitoring till PAR is reached for Phase II. The Phase I may be done in procedure room or may call to secure a Phase I area. * If naloxone or flumazenil are used for reversal, hold in Phase I for an additional 60 -120 minutes before discharge to Phase II. Please call the Sedation Physician to re-evaluate and complete post-note for discharge to Phase II area. Do NOT discharge from procedure sedation or Phase 1 until post- sedation evaluation note is complete by procedure /sedation MD Sedation Discharge Instructions to be given to the patient at discharge to home.
--- NOTE | 2018-01-29 11:49 | Cardiac Catheterization ---
Procedure Note Procedure Date Jan 29, 2018. Pre-Procedure Diagnosis Angina, Positive Stress Test AUC Score 7 Post-Procedure Diagnosis Normal Coronary Arteries, Normal Intracardiac Pressures Procedure(s) Performed Coronary Angiography, Left Heart Cath Flow Coordinator Marty [employer]ator(s) Glunt Estimated Blood Loss 5 Medication(s) Fentanyl, Heparin, Nicardipine, Nitroglycerin, Versed, Lidocaine 1% Summary of Findings Indication: Abnormal stress test, atypical chest pain Access: 6 FR right radial artery Catheters: Hurst Findings: LM - angiographically normal LAD - angiographically normal Circumflex - angiographically normal RCA - angiographically normal LVEDP - 2 Arterial Closure: TR band Summary: 1. Angiographically normal coronary arteries 2. Normal intracardiac filling pressure Recommendations: Continued ASCVD risk factor modification Consider extended ambulatory monitoring to evaluate for cause of patient's presenting spells Hemodynamics Rest Ao: 139/71/102 Final Ao: 140/73/101 LV: 138/2 Recommendations Medical therapy and/or Counseling Specimens None Radiation Exposure (mGy) 1094 Contrast (mls) 40 Visi Fluids (cc crystalloids) 40 Drains None Anesthesia Moderate Procedural Complication(s) None Disposition PCU ACC Data Cardiac Status Clinical evaluation leading to the procedure CAD Presntation: Positive Stress Test Anginal Classification: CCS III Heart Failure: No, NYHA Class: CCS I Cardiogenic Shock w/in 24Hrs: No Cardiac Arrest w/in 24Hrs: No Imaging studies past 6 months: Yes Stress studies past 6 months: Yes Stress Echocardiogram: Yes - Indeterminant Closure Device Percutaneous Entry Location: Radial Closure Device: Radial Band Recommendations: Medical therapy and/or Counseling Intraprocedure Events Significant Dissection: No Perforation: No
[2018-01-29] MEDS ORDERED: SODIUM CHLORIDE 0.9% 1000ML 1,000 ML IV SCH (11:50)
--- NOTE | 2018-01-29 13:02 | Discharge Instructions ---
Discharge Instructions Date of Service Jan 29, 2018. Admission Reason for Admission: Chest Pain Discharge Discharge Diagnosis / Problem: Chest discomfort Discharge Goals Goal(s): Improve disease control, Diagnostic testing Activity Recommendations Activity Limitations: resume your previous activity . Instructions / Follow-Up Instructions / Follow-Up You were admitted to the hospital with symptoms of central chest discomfort and fatigue. Labs were reassuring as the heart enzymes were not elevated. A stress echo did not reveal abnormalities, but given your symptoms, a more invasive but confirmatory test (a cardiac catheterization) was offered. The cardiac catheterization was reassuring, and did not show any blockages in the vessels of your heart. At time of discharge, no new medications are being prescribed. Please follow up with your family doctor about keeping your cardiac health optimal: Your lipid panel is good. Your HbA1c (sugar levels) are borderline elevated. Discussion regarding eating well, exercise/healthy weight loss, and stress management is advisable. Thank you for allowing us to participate in your care, Current Hospital Diet Patient's current hospital diet: AHA Diet (Heart Healthy) Discharge Diet Recommended Diet: Regular Diet Procedures Procedures Performed: Stress echo Cardiac catheterization Pending Studies Studies pending at discharge: no Laboratory Results Hemoglobin A1c Test 01/27/18 20:22 Range/Units Estimated Average Glucose 114 mg/dl Hemoglobin A1c 5.6 4.5-5.6 % Lipid Panel Test 01/28/18 03:43 Range/Units Triglycerides Level 47 0-150 mg/dl Cholesterol Level 142 0-200 mg/dl HDL Cholesterol 76 mg/dl Cholesterol/HDL Ratio 1.9 LDL Cholesterol, Calculated 57 mg/dl Medical Emergencies . Who to Call and When: Medical Emergencies: If at any time you feel your situation is an emergency, please call 911 immediately. . Non-Emergent Contact Non-Emergency issues call your: Primary Care Provider . . "Provider Documentation" section prepared by Marly Gould. . Resident Tracking Resident Involvement: Resident Care Provided Care Provided: Adult Hospital Medicine
--- NOTE | 2018-01-29 13:04 | Discharge Summary ---
Discharge Summary Date of Service Jan 29, 2018. Discharge Summary Admission Date: Jan 27, 2018 at 21:53 Discharge Date: Jan 29, 2018 Discharge Disposition: Home Principal Diagnosis: Chest discomfort Procedures: Stress echo. Cardiac catheterization. Consultations: Cardiology Medication Reconciliation Continued Medications: Acetaminophen (Tylenol) 500 Mg Tab 500 MG PO UD PRN for Pain or Fever, TAB TAKE PER PACKAGE DIRECTIONS Discharge Exam Patient well. No further episodes of central chest discomfort or acute fatigue. No fevers/chills, headaches, palpitations, dyspnea, abdominal pain, lower extremity swelling or rashes. Tolerating diet without nausea or vomiting, ambulating without exacerbating symptoms, and voiding and stooling appropriately. ROS is unremarkable except as noted above. Physical Exam: General Appearance: WD/WN, no apparent distress Eyes: normal inspection ENT: hearing grossly normal, pharynx normal Neck: supple, no JVD Respiratory/Chest: chest non-tender, normal breath sounds, no respiratory distress, no accessory muscle use Cardiovascular: regular rate, rhythm, no JVD, no murmur, normal peripheral pulses Abdomen / GI: normal bowel sounds, non tender, soft Extremities: no calf tenderness, no pedal edema Neurologic/Psychiatric: alert, normal mood/affect, oriented x 3 Skin: normal color, warm/dry, no rash Hospital Course 57 year old female with no significant past medical history presented to ER for substernal chest pain associated with cold sweat and acute fatigue. Risk factors : family history of CAD. No HTN, HLD, DM or smoking history Chest Pain Serial troponin x 3 negative. Lipid profile within normal limits. HbA1c is borderline at 5.6 Stress echocardiogram was equivocal. Given lack of alternative diagnosis (no indicators of GERD or musculoskeletal etiology), and equivocal stress images, cardiology consulted. Cardiac catheterization performed, showed no coronary vessel narrowing/ obstruction No new medications prescribed on discharge. Hypertension Elevated on admission, but normalized during admission without medication management Possible acute elevation of blood pressure may have accounted for symptoms prior to admission. Resident Physician Supervision Note: I was present with Dr. Gould during the history and exam. I discussed the case with the resident and agree with the findings and plan as documented in the note. Documented By: Arron Gomes Total Time Spent: Less than 30 minutes This includes examination of the patient, discharge planning, medication reconciliation, and communication with other providers. Discharge Instructions Please refer to the electronic Patient Visit Report (Discharge Instructions) for additional information. Resident Tracking Resident Involvement: Resident Care Provided Care Provided: Adult Hospital Medicine
--- NOTE | 2018-01-29 13:51 | CARDIOLOGY CONSULTATION ---
DATE OF CONSULTATION: 01/29/2018 Cardiology consult note. REASON FOR CONSULTATION: Chest pain. CONSULTATION REQUESTED BY: Dr. Gomes. HISTORY OF PRESENT ILLNESS: Ms. Watts is a very pleasant 57-year-old woman with minimal significant past medical history who was admitted 2 days ago following episodes of chest heaviness and clamminess. Patient states that she had been in her usual state of health, was at her place of work when all of a sudden felt unwell with brief episode of chest heaviness and mild shortness of breath. Patient checked her blood pressure at that time and noted to be elevated in the 170s. Patient's heart rate was in the 70s. Symptoms eventually went away, but later while working in the same shift had another episode of generally feeling unwell, feeling winded and as a result presented to the ED. While waiting there had a second episode of chest heaviness which resolved without any intervention. On arrival, patient was hypertensive to the 200s, but was chest pain free. Initial EKG showed no dynamic ST changes. Her troponins have been negative x4. She has had no recurrent chest pain or heaviness since she has been here. Her telemetry has been unremarkable. Patient underwent an exercise stress echo yesterday which showed reduced functional capacity. The patient was only exercised for 3 minutes. EKG was negative for ischemia, but echo images showed questionable inferior exercise induced hypokinesis. PAST MEDICAL HISTORY: Morbid obesity status post prior gastric bypass surgery. FAMILY HISTORY: Family history of premature coronary artery disease with mother who from a massive VA per patient in her 60s and father had bypass surgery. SOCIAL HISTORY: She works at the [employer], is , and is caring for 3 grandchildren right now. Denies significant tobacco or alcohol use. MEDICATIONS: Just Tylenol at home. ALLERGIES: ALLERGIC TO HYDROCODONE AND PENICILLINS. REVIEW OF SYSTEMS: Ten-point review of systems was completed and otherwise negative unless stated in HPI. PHYSICAL EXAMINATION: VITAL SIGNS: Temperature 36.8, pulse 57, blood pressure 103/63, she is satting 97% on room air. GENERAL: Patient appears comfortable in no acute distress. HEENT: Sclerae are anicteric. Oropharynx is clear. Mucous membranes are moist. NECK: Supple with no lymphadenopathy. LUNGS: Clear to auscultation bilaterally. CARDIAC: She had a regular rate and rhythm with no appreciable murmurs, rubs or gallops. ABDOMEN: Soft, nontender, nondistended with positive bowel sounds. EXTREMITIES: Warm. She had no significant lower extremity edema. She had intact distal pulses including 2+ radial pulses bilaterally. SKIN: Showed no rashes or lesions. NEUROLOGIC: Nonfocal. PSYCHIATRIC: She was alert, oriented and appropriate. LABORATORY DATA: Anemic with a hemoglobin of 11.5, platelets of 189. Coags within normal limits. Sodium 143, potassium 4.5, BUN of 18, creatinine of 0.8. Troponins have been negative x4. Chest x-ray showed no acute cardiopulmonary process. Exercise stress echo was read to be indeterminate at 92% maximum predicted heart rate. There was gross LV augmentation, but questionable base to mid inferior stress induced hypokinesis. Negative stress EKG: Patient exercised for 3 minutes achieving 4.6 METS and had no exercise induced chest pain. EKG showed sinus rhythm at a ventricular rate of 70. There was questionable anterior infarct, no dynamic ST changes. IMPRESSION AND PLAN: 1. Chest heaviness. 2. Abnormal stress test. 3. Family history of coronary artery disease. 4. Anemia. 5. Hypertension. Ms. Watts is here with 2 episodes of chest heaviness occurring 2 days ago. Cardiac enzymes and EKG have been remarkable for active ischemia. She did have a stress test which was abnormal in that she was noted to have a significantly reduced functional capacity and there was a questionable stress induced inferior wall motion abnormality. In the setting of patient's risk factors including significant family history for coronary artery disease, I feel that further risk stratification is warranted and would proceed with cardiac catheterization. We discussed risks, benefits, alternatives of this procedure and she is willing to proceed. Plan for cardiac catheterization via right radial artery later today. In the interim, continue on aspirin and statin. Further recommendations pending findings of cardiac catheterization.
== END 2018-01-29 18:20 | disposition home or self-care (01) ==
LOC: C.EDB 20:04 → C.2T 21:53 → ENRESERV 21:57 → CMPBEDREQ 22:43
PROVIDERS: ADMIT Internal Medicine; ATTEND Family Medicine
DX: R07.9 Chest pain, unspecified (principal); R03.0 Elevated blood-pressure reading, without diagnosis of hypertension; E66.01 Morbid (severe) obesity due to excess calories; Z68.41 Body mass index [BMI] 40.0-44.9, adult; Z98.84 Bariatric surgery status; Z88.5 Allergy status to narcotic agent; Z88.0 Allergy status to penicillin; Z83.3 Family history of diabetes mellitus; Z82.49 Family history of ischemic heart disease and other diseases of the circulatory system